=== PATIENT | female | born 1945 | race Caucasian/White ===

== ENCOUNTER 2022-04-14 09:54 | Emergency (ER) | payer MEDICARE, OTHER ==
[~2022-04-14] VITALS: Ht 149.9 cm; Wt 63.5 kg
[~2022-04-14 09:54] MED LIST: MECL25 PO; MELA3 PO; PROM25S PR; RANI150 PO
== END 2022-04-14 12:15 | disposition home or self-care (01) ==
LOC: ER 09:54
DX: R07.81 Pleurodynia (principal); Z88.0 Allergy status to penicillin; Z88.1 Allergy status to other antibiotic agents
CPT/HCPCS: 71046